=== PATIENT | male | born 1965 | race Caucasian/White ===

== ENCOUNTER 2024-05-16 18:28 | Inpatient (IN) | payer MEDICARE ==
[2024-05-16 19:22] LABS: Basophils % (A) 0 %; Eosinophils # (A) 0.3 k/uL (0-0.7); Eosinophils % (A) 4 %; HGB 13.1 gm/dL (13.0-17.5); Lymphocytes % (A) 26 %; MCH 30.3 pg (25.0-35.0); MCHC 34.5 g/dL (31.0-37.0); Mean Platelet Volume 7.2; Monocytes # (A) 0.4 k/uL (0-1.0); Monocytes % (A) 5 %; Neutrophils % (A) 62 %; Platelet Count 301 k/uL (150-450); RBC 4.32 m/uL (4.30-5.90); RDW 12.9 % (11.5-15.5)
--- NOTE | 2024-05-16 19:32 | CT ---
EXAMINATION TYPE: CT brain wo con DATE OF EXAM: 05/16/2024 7:25 PM COMPARISON: None. CLINICAL INDICATION: Male, 59 years old with history of Altered mental status, AMS. Pt had an abd/pel vis with contrast an hour prior on outpatient side before getting sent to the ER for AMS. Dr. Powers was contacted and said it would be fine to do the Brain w/o. TECHNIQUE: CT of the brain is performed utilizing 3 mm thick sections through the posterior fossa and 3 mm thick sections through the remaining calvarium. Study is performed within 24 hours of arrival to the hospital. Contrast used: mL of , (none if empty). Contrast was given earlier in the day for CT abdomen and pelv is. CT DLP: 1138.8 mGycm, Automated exposure control for dose reduction was used. FINDINGS: No abnormal hyperdensity is present to suggest an acute intracranial hemorrhage. No mass lesion is evident. No acute infarcts are evident. Ventricles and sulci are appropriate for the patient age. Mucosal thickening and air-fluid levels are within the left maxillary sinus. There is mucosal thicken ing within the right maxillary sinus. Mucosal thickening and air-fluid levels are within the left sph enoid sinus. Mucosal thickening in a few ethmoid air cells greater on the right. Some right frontal s inus mucosal thickening is present. Correlate for chronic sinusitis. Consider acute pansinusitis with in the differential. IMPRESSION: 1. No acute intracranial process. Follow up MRI can be performed as clinically indicated. 2. Pansinusitis. [facility], , 05/16/2024 7:29 PM
--- NOTE | 2024-05-16 19:42 | ED ---
General Adult HPI - General Chief complaint: Altered Mental Status Stated complaint: AMS Time Seen by Provider: 05/16/24 18:35 Source: patient, RN notes reviewed, old records reviewed Mode of arrival: ambulatory Limitations: altered mental status - History of Present Illness Initial comments: 59-year-old male who presents from outpatient CT with confusion and altered mental status. Patient is able to answer questions. He was ambulatory at the time of triage with stable vitals. He does occasionally answer questions inappropriately. Uncertain of the onset of his symptoms or his baseline mental status. Patient was apparently receiving CT of the abdomen pelvis on an outpatient basis. He denies pain complaints including no headache. No chest p ain. No fever. - Related Data Allergies Allergy/AdvReac Type Severity Reaction Status Date / Time No Known Allergies Allergy Verified 05/16/24 18:33 Review of Systems ROS Statement: Those systems with pertinent positive or pertinent negative responses have been documented in the HPI. ROS Other: All systems not noted in ROS Statement are negative. Past Medical History Past Medical History: No Reported History History of Any Multi-Drug Resistant Organisms: None Reported Past Surgical History: Cholecystectomy Past Psychological History: No Psychological Hx Reported Smoking Status: Current every day smoker Past Alcohol Use History: None Reported Past Drug Use History: Marijuana General Exam Limitations: no limitations General appearance: alert Head exam: Present: atraumatic, normocephalic Eye exam: Present: normal appearance, PERRL Neck exam: Present: normal inspection. Absent: tenderness, meningismus Respiratory exam: Present: normal lung sounds bilaterally. Absent: respiratory distress, wheezes Cardiovascular Exam: Present: regular rate, normal rhythm GI/Abdominal exam: Present: soft. Absent: distended, tenderness Neurological exam: Present: alert, oriented X3 (Patient is alert and oriented to question however occasionally inappropriately answers), CN II-XII intact. Absent: motor sensory deficit Psychiatric exam: Present: anxious, other (Bizarre behavior) Skin exam: Present: warm, dry, intact Course Vital Signs 05/16/24 05/16/24 18:29 20:30 Temperature 98.2 F Pulse Rate 91 66 Respiratory 16 19 Rate Blood Pressure 137/96 132/84 O2 Sat by Pulse 98 99 Oximetry - Reevaluation(s) Reevaluation #1: 05/16/24 20:34 Patient reevaluated, sleeping. Vital signs are stable, blood sugar is normal. Nurse reports nonsensical speech. Medical Decision Making - Medical Decision Making Was pt. sent in by a medical professional or institution (SHIELA Portillo, ACCESS CONTROL OFFICER, urgent care, hospital, or prison...) When possible be specific @ -No Did you speak to anyone other than the patient for history (EMS, parent, family, police, friend...)? What history was obtained from this source @ -No Did you review nursing and triage notes (agree or disagree)? Why? @ -I reviewed and agree with nursing and triage notes Were old charts reviewed (outside hosp., previous admission, EMS record, old EKG, old radiological studies, urgent care reports/EKG's, prison records)? Report findings @ -No old charts were reviewed Differential Altered Mental Status: Hypoglycemia, DKA, hypercapnia, ETOH, overdose, CO poisoning, trauma, myxedema coma, HTN encephalopathy, infection, encephalitis, psychosis, intercranial hemorrhage, hepatic encephalopathy, meningitis, CVA, this is not meant to be an all-inclusive list EKG interpreted by me (3pts min.). @ -As above X-rays interpreted by me (1pt min.). @ -None done CT interpreted by me (1pt min.). @ -CT brain negative for intracranial hemorrhage or mass effect U/S interpreted by me (1pt. min.). @ -None done What testing was considered but not performed or refused? (CT, X-rays, U/S, labs)? Why? @ -None What meds were considered but not given or refused? Why? @ -None Did you discuss the management of the patient with other professionals (professionals i.e. SHIELA Portillo, ACCESS CONTROL OFFICER, lab, RT, psych nurse, clinical social worker, courier delivery driver, teacher, facility security officer, case managers)? Give summary @Admitted to Dr. Stern Was smoking cessation discussed for >3mins.? @ -No Was critical care preformed (if so, how long)? @ -No Were there social determinants of health that impacted care today? How? (Home lessness, low income, unemployed, alcoholism, drug addiction, transportation, low edu. Level, literacy, decrease access to med. care, retirement, rehab)? @ -No Was there de-escalation of care discussed even if they declined (Discuss DNR or withdrawal of care, Hospice)? DNR status @ -No What co-morbidities impacted this encounter? (DM, HTN, Smoking, COPD, CAD, Cancer, CVA, ARF, Chemo, Hep., AIDS, mental health diagnosis, sleep apnea, morbid obesity)? @ -None Was patient admitted / discharged? Hospital course, mention meds given and route, prescriptions, significant lab abnormalities, going to OR and other pertinent info. @ -[59-year-old male with altered mental status, the timing of this change and baseline mental status is not known. Patient has stable vitals. He is moving all extremities symmetrically. There is no prior medical history available at the time my evaluation. Patient head CT is negative. Normal CBC, CMP shows elevated CO2 and a potassium 3.1 which is replaced. The ammonia is mildly elevated at 37. Urinalysis, urine drug screen and venous blood gas are pending. Undiagnosed new problem with uncertain prognosis? @ -No Drug Therapy requiring intensive monitoring for toxicity (Heparin, Nitro, Insulin, Cardizem)? @ -No Were any procedures done? @ -No Diagnosis/symptom? @ -Altered mental status Acute, or Chronic, or Acute on Chronic? @ -Acute Uncomplicated (without systemic symptoms) or Complicated (systemic symptoms)? @ -Default Side effects of treatment? @ -No Exacerbation, Progression, or Severe Exacerbation? @ -No Poses a threat to life or bodily function? How? (Chest pain, [place], [place], pneumonia, PE, COPD, DKA, ARF, appy, cholecystitis, CVA, Diverticulitis, Homicidal, Suicidal, threat to staff... and all critical care pts) @ -Yes, acute delirium - Lab Data Result diagrams: 05/16/24 19:15 05/16/24 19:15 Lab Results 05/16/24 05/16/24 05/16/24 Range/Units 19:15 19:15 19:15 WBC 8.0 (3.8-10.6) k/uL RBC 4.32 (4.30-5.90) m/uL Hgb 13.1 (13.0-17.5) gm/dL Hct 38.0 L (39.0-53.0) % MCV 88.0 (80.0-100.0) fL MCH 30.3 (25.0-35.0) pg MCHC 34.5 (31.0-37.0) g/dL RDW 12.9 (11.5-15.5) % Plt Count 301 (150-450) k/uL MPV 7.2 Neutrophils % 62 % Lymphocytes % 26 % Monocytes % 5 % Eosinophils % 4 % Basophils % 0 % Neutrophils # 5.0 (1.3-7.7) k/uL Lymphocytes # 2.0 (1.0-4.8) k/uL Monocytes # 0.4 (0-1.0) k/uL Eosinophils # 0.3 (0-0.7) k/uL Basophils # 0.0 (0-0.2) k/uL PT 10.7 (10.0-12.5) sec INR 1.0 (<1.2) APTT 25.1 (22.0-30.0) sec Sodium 136 L (137-145) mmol/L Potassium 3.1 L (3.5-5.1) mmol/L Chloride 95 L (98-107) mmol/L Carbon Dioxide 32 H (22-30) mmol/L Anion Gap 9 mmol/L BUN 16 (9-20) mg/dL Creatinine 0.89 (0.66-1.25) mg/dL Est GFR (CKD-EPI)AfAm >90 (>60 ml/min/1.73 sqM) Est GFR (CKD-EPI)NonAf >90 (>60 ml/min/1.73 sqM) Glucose 102 H (74-99) mg/dL POC Glucose (mg/dL) (70-110) mg/dL POC Glu Mill Work ID Calcium 8.8 (8.4-10.2) mg/dL Total Bilirubin 0.9 (0.2-1.3) mg/dL AST 33 (17-59) U/L ALT 20 (4-49) U/L Alkaline Phosphatase 94 (38-126) U/L Ammonia (<30) umol/L Troponin I (0.000-0.034) ng/mL Total Protein 6.8 (6.3-8.2) g/dL Albumin 3.7 (3.5-5.0) g/dL Serum Alcohol <10 mg/dL 05/16/24 05/16/24 05/16/24 Range/Units 19:15 19:15 20:27 WBC (3.8-10.6) k/uL RBC (4.30-5.90) m/uL Hgb (13.0-17.5) gm/dL Hct (39.0-53.0) % MCV (80.0-100.0) fL MCH (25.0-35.0) pg MCHC (31.0-37.0) g/dL RDW (11.5-15.5) % Plt Count (150-450) k/uL MPV Neutrophils % % Lymphocytes % % Monocytes % % Eosinophils % % Basophils % % Neutrophils # (1.3-7.7) k/uL Lymphocytes # (1.0-4.8) k/uL Monocytes # (0-1.0) k/uL Eosinophils # (0-0.7) k/uL Basophils # (0-0.2) k/uL PT (10.0-12.5) sec INR (<1.2) APTT (22.0-30.0) sec Sodium (137-145) mmol/L Potassium (3.5-5.1) mmol/L Chloride (98-107) mmol/L Carbon Dioxide (22-30) mmol/L Anion Gap mmol/L BUN (9-20) mg/dL Creatinine (0.66-1.25) mg/dL Est GFR (CKD-EPI)AfAm (>60 ml/min/1.73 sqM) Est GFR (CKD-EPI)NonAf (>60 ml/min/1.73 sqM) Glucose (74-99) mg/dL POC Glucose (mg/dL) 119 H (70-110) mg/dL POC Glu Mill Work ID Tyler Diallo Calcium (8.4-10.2) mg/dL Total Bilirubin (0.2-1.3) mg/dL AST (17-59) U/L ALT (4-49) U/L Alkaline Phosphatase (38-126) U/L Ammonia 37 H (<30) umol/L Troponin I <0.012 (0.000-0.034) ng/mL Total Protein (6.3-8.2) g/dL Albumin (3.5-5.0) g/dL Serum Alcohol mg/dL Disposition Clinical Impression: Altered mental status, Acute delirium Disposition: ADMITTED IP TO THIS HOSP Condition: Stable Is patient prescribed a controlled substance at d/c from ED?: No Referrals: Pawan Blackman MD [Primary Care Provider] - 1-2 days Time of Disposition: 20:37
[2024-05-16 19:45] LABS: ALT 20 U/L (4-49); AST 33 U/L (17-59); African American GFR (CKD) >90 (>60 ml/min/1.73 sqM); Albumin 3.7 g/dL (3.5-5.0); Alcohol <10 mg/dL; Alkaline Phosphatase 94 U/L (38-126); Anion Gap 9 mmol/L; Blood Urea Nitrogen 16 mg/dL (9-20); Calcium 8.8 mg/dL (8.4-10.2); Carbon Dioxide 32 mmol/L (22-30); Chloride 95 mmol/L (98-107); Glucose 102 mg/dL (74-99); Non-African American GFR(CKD) >90 (>60 ml/min/1.73 sqM); Potassium 3.1 mmol/L (3.5-5.1); Sodium 136 mmol/L (137-145); Total Bilirubin 0.9 mg/dL (0.2-1.3); Total Protein 6.8 g/dL (6.3-8.2)
[2024-05-16 19:49] LABS: Partial Thromboplastin Time 25.1 sec (22.0-30.0); Prothrombin Time 10.7 sec (10.0-12.5)
[2024-05-16] MEDS ORDERED: NALOXONE 0.4 MG/ML 1 ML VIAL IV PRN (20:32)
[2024-05-16 20:34] LABS: Glucose,Whole Blood 119 mg/dL (70-110)
[2024-05-16 21:12] LABS: VBG PH 7.52 (7.31-7.41)
[2024-05-16] MEDS: SODIUM CHLORIDE 0.9% 500 ML 500 ML IV ONE (21:12)
[2024-05-16] MEDS: SODIUM CHLORIDE 0.9% 1,000 ML IV SCH (21:12)
[2024-05-16] MEDS: LACTULOSE 20 GM/30 ML CUP PO ONE (21:13)
[2024-05-16] MEDS: POTASSIUM CHLORIDE ER 20 MEQ TAB.ER PO STA (21:13)
[2024-05-17] LABS: Appearance,Urine Clear (Clear); Bilirubin,Urine Negative (Negative); Blood,Urine Negative (Negative); Color,Urine Light Yellow; Glucose,Urine (UA) Negative (Negative); Ketones,Urine Negative (Negative); Leukocyte Esterase,Urine Negative (Negative); Nitrite,Urine Negative (Negative); Protein,Urine Negative (Negative); Specific Gravity,Urine 1.043 (1.001-1.035); Urobilinogen,Urine <2.0 mg/dL (<2.0)
[2024-05-17 00:14] LABS: Amphetamine Screen,Urine Not Detected (NotDetected); Barbiturate Screen,Urine Not Detected (NotDetected); Benzodiazepines Screen,Urine Not Detected (NotDetected); Cocaine Screen,Urine Detected (NotDetected); Methadone Screen, Urine Not Detected (NotDetected); Opiate Screen,Urine Not Detected (NotDetected); Oxycodone Screen, Urine Not Detected (NotDetected); Phencyclidine Screen,Urine Not Detected (NotDetected); Tricyclic Antidepressant,Urine Not Detected (NotDetected); Urn Cannabinoid Scrn Detected (NotDetected)
[2024-05-17 00:19] LABS: Acetaminophen <10.0 ug/mL; Salicylate <1.0 mg/dL
[2024-05-17] MEDS ORDERED: OLANZapine 5 MG TAB PO PRN (12:32)
[2024-05-17] MEDS ORDERED: OLANZapine 10 MG VIAL IM PRN (12:32)
--- NOTE | 2024-05-17 12:41 | P.CN ---
Psychiatric Consult - . Consult date: 05/17/24 Consult:: 05/17/24 10:58 IDENTIFYING DATA: This patient is a 59-year-old male, is single has no kids, collect Social Security, currently living alone in a house/farm REASON FOR REFERRAL: Psychiatry was consulted for AMS/acute psychosis HISTORY OF PRESENT ILLNESS: The patient presented to the hospital initially as an outpatient for CT scan/imaging, it was noted at that time to be confused and was brought to the ER on 05/16. Patient apparently was speaking nonsensically, bizarre, clinician was uncertain of patient's baseline. Patient had a CT scan which was done, did not show any acute changes, urine drug screen is positive for cocaine and marijuana, urine analysis was negative. Patient was seen laying in bed agreeable to speak to loan underwriter. He did appear to have disheveled appearance, poor dentition, he was following most directions, did appear to ramble at times, bizarre at times as well. Was able to answer some questions did state his full name, his appropriate age and date of and also today's date. He knew that he was in [facility]. Claims that he came in for imaging however was not able to state why exactly he needed it. When asked further he states that "I do not know my primary care ordered it". He also states that "to check my insides". He appeared to have fairly poor insight into his condition and also treatment. He claims that he moved locally to his friend's farm/house about 2 years ago and [place] Claims that he did have psychiatric services at that time when he was down there and was previously diagnosed with "hypomania". Harris ms that he is not having any paranoia at this time, states that he has been sleeping about 8 hours a night, appetite is fair. Denying any depression or anxiety at this time. Fair attention span, irritability noted at times during interview. At this time patient denies any suicidal or homical ideations, intent or plan. Patient denies any auditory, visual hallucinations and denies any paranoia or delusions. Patients admits to using marijuana regularly, denies any other recreational drug use PAST PSYCHIATRIC HISTORY: Patient has a a history of "hypomania" and claims that he might be diagnosed with bipolar disorder. Claims that he used to be on mood stabilizing medications including "Trileptal" however cannot remember any other ones. Patient denies any previous psychiatric hospitalizations. Claims that he used to follow-up with mental health at "[facility]". However not any local follow-up. Patient denies any history of suicide attempts in the past. Past Medical History: No Reported History History of Any Multi-Drug Resistant Organisms: None Reported Past Surgical History: Cholecystectomy Past Psychological History: No Psychological Hx Reported Smoking Status: Current every day smoker Past Alcohol Use History: None Reported Past Drug Use History: Marijuana ALLERGIES: as per EMR. CHEMICAL DEPENDENCY HISTORY: as per HPI. FAMILY PSYCHIATRIC/SUBSTANCE USE HISTORY: Denies SOCIAL HISTORY: Patient was born and raised in [place]. Claims that he completed his associates degree, he is not working at this time currently lives alone in a farm/house he is single he has no kids he collects Social Security, claims that he did have legal history however was fairly vague about what it is. MENTAL STATUS EXAM: General Appearance: Patient appears to be stated age is alert, attempts to cooperate and follow some commands, irritable at times. Patient appears to have poor hygiene and grooming wearing hospital gown with fair eye contact. Poor dentition Behavior: Patient is calmly lying in bed without any agitated behavior. Irritable at times. Speech: Patient's speech is fluent and nonpressured. Rambling at times. Mood/Affect: Patient reports their mood is "ok", affect is congruent Suicidality/Homicidality: Patient denies having any suicidal or homicidal ideation intent or plan. Perceptions: Patient denies any visual hallucinations and denies any auditory hallucinations Though content/process: There is no evidence of any delusional thought content and thought process is linear and goal-directed. Rambling at times, bizarre statements. Memory and concentration: AOX3, grossly intact for the purposes of this session. Cannot spell "WORLD" backwards Judgment and insight: Poor IMPRESSIONS: Delirium, unknown etiology psychosis NOS, r/o bipolar disorder with psychotic features, schizoaffective disorder, drug-induced psychotic episode Cannabis use disorder PLAN: -At this time patient DOES NOT meet criteria for inpatient psychiatric admission [facility] psychiatry will follow up with patient tomorrow to see if patient is more clear and may be discharged with outpatient follow-up. -Delirium precautions recommended with patient including - avoiding use of narcotics and TECHNICAL PROFESSIONAL sedatives, limit anticholinergic medications when possible, frequent re-orientation, minimize use of restraints, open window shades during the day and close them at night -Would recommend the following medication changes/additions: Risperdal 1 mg now, with 1 mg scheduled nightly for psychosis/mood stabilization, trazodone 50 mg nightly as needed for insomnia, Zyprexa as needed for agitation/aggression. -magazine worker to provide patient with outpatient mental health/psychiatry resources for appropriate follow up upon discharge -Photoengraving Supervisor spoke with patient about substance abuse and the harmful effects on medical and mental health, patient verbally understood and agreed. -magazine worker to provide patient substance use treatment resources including AA/NA meetings in the community. -Communicated plan to patient's nurse -Will continue to follow along -Please contact with any questions. 05/17/24 12:33
[2024-05-17] MEDS: risperiDONE 1 MG TAB PO STA (14:33)
[2024-05-17 14:59] LABS: Basophils # (A) 0.1 k/uL (0-0.2); Basophils % (A) 0 %; Eosinophils # (A) 0.1 k/uL (0-0.7); Eosinophils % (A) 1 %; HCT 39.9 % (39.0-53.0); HGB 13.4 gm/dL (13.0-17.5); Lymphocytes # (A) 1.5 k/uL (1.0-4.8); Lymphocytes % (A) 13 %; MCH 30.1 pg (25.0-35.0); MCHC 33.6 g/dL (31.0-37.0); MCV 89.8 fL (80.0-100.0); Mean Platelet Volume 7.6; Monocytes # (A) 0.6 k/uL (0-1.0); Monocytes % (A) 5 %; Neutrophils # (A) 9.3 k/uL (1.3-7.7); Neutrophils % (A) 80 %; Platelet Count 284 k/uL (150-450); RBC 4.44 m/uL (4.30-5.90); WBC 11.7 k/uL (3.8-10.6)
[2024-05-17 15:15] LABS: African American GFR (CKD) >90 (>60 ml/min/1.73 sqM); Anion Gap 8 mmol/L; Blood Urea Nitrogen 10 mg/dL (9-20); Carbon Dioxide 32 mmol/L (22-30); Chloride 99 mmol/L (98-107); Glucose 123 mg/dL (74-99); Non-African American GFR(CKD) >90 (>60 ml/min/1.73 sqM); Potassium 3.4 mmol/L (3.5-5.1); Sodium 139 mmol/L (137-145)
[2024-05-17] MEDS ORDERED: IOPAMIDOL CONTRAST (ORAL USE) VIAL PO PRN (16:50)
--- NOTE | 2024-05-17 16:53 | P.HPIM ---
History of Present Illness H&P Date: 05/17/24 Chief Complaint: Not making sense 59-year-old patient, follows with Dr. Blackman. Patient had come to the ER when he had presented to the outpatient CT scan for some testing. Was found to be somewhat confused. Ambulatory. Was sent into the ER. He was not making much sense in the ER. Patient apparently was supposed to receive CT scan of the abdomen pelvis he did not have any papers. This morning when I saw the patient is somewhat agitated as several people he says have seen him. He explained to me that in 2019 he had 3 feet of small bowel and duodenum removed [place] [facility]. His bowel pattern is sometimes get several bowel movements. And he is supposed to get a CT scan abdomen and pelvis. He does not remember where his papers were present. He denied using cocaine and marijuana. When I did let him know his results he said yes he is taking the same. A bit agitated during his history taking. Denies any pain. Does cough. No sputum. Review of systems: GEN.: None EYES: None HEENT: None NECK: None RESPIRATORY: Some cough e CARDIOVASCULAR: None GASTROINTESTINAL: Variable bowel pattern e GENITOURINARY: None MUSCULOSKELETAL: None LYMPHATICS: None HEMATOLOGICAL: None PSYCHIATRY: Agitated e NEUROLOGICAL: None Social history: Lives alone. Does smoke. Does do cocaine. Not employed. Physical examination: VITAL SIGNS: 98.9, 84, 18, 139.91, 98% room air GENERAL: BMI 21.5, laying in bed somewhat anxious appearing. EYES: Pupils equal. Conjunctiva kalpana l. HEENT: External appearance of nose and ears normal, oral cavity grossly normal. NECK: JVD not raised; masses not palpable. HEART: First and second heart sounds are normal; no edema. LUNGS: Respiratory rate normal; decreased breath sounds. ABDOMEN: Soft, nontender, liver spleen not palpable, no masses palpable. PSYCH: Sometimes is slightly off with giving answers. A bit agitated. Thank apologizes. l. MUSCULOSKELETAL:No Clubbing/cyanosis;muscles-grossly intact NEUROLOGICAL: Cranial nerves grossly intact; no facial asymmetry, power and sensation grossly intact. LYMPHATICS: No lymph nodes palpable in the axilla and neck INVESTIGATIONS, reviewed in the clinical context: May 17: White count 11.7 hemoglobin 13.4 platelets 24 sodium 139 potassium 3.4 BUN 10 creatinine 0.9 AST 33 ALT 20 Urine drug screen positive for marijuana, cocaine serum alcohol less than 10 EKG tracing personally reviewed by me-normal sinus rhythm CT brain: Unremarkable Assessment plan: -Possible manifestation of cocaine use. Delirium Patient is found to be somewhat confused when he came for his outpatient CT scan. Did not have his papers. Was not making much sense to the ER physician. -Psychosis NOS schizoaffective disorder Being followed by psychiatry. Placed on Risperdal, trazodone, Zyprexa as needed -Chronic nicotine dependence cigarette smoker Nicotine patch -History of irregular bowels from prior surgery 3 feet of small bowel and possible duodenum was removed around 2018 Patient due for outpatient CT scan abdomen pelvis. small bowel removed. Order CT scan abdomen pelvis with and without contrast. Past Medical History Past Medical History: No Reported History Additional Past Medical History / Comment(s): NONE OF ANYONE BUSINESS History of Any Multi-Drug Resistant Organisms: None Reported Past Surgical History: No Surgical Hx Reported, Cholecystectomy Additional Past Surgical History / Comment(s): NO DR'S NO SURGICAL ISSUES Past Psychological History: No Psychological Hx Reported Smoking Status: Current every day smoker Past Alcohol Use History: None Reported Past Drug Use History: Cocaine, Marijuana, Prescription Drug Abuse - Past Family History Mother Family Medical History: Unable to Obtain Medications and Allergies Home Medications Medication Instructions Recorded Confirmed Type Varenicline [Chantix Continuing 1 mg PO DAILY 05/17/24 05/17/24 History Pack] Allergies Allergy/AdvReac Type Severity Reaction Status Date / Time No Known Allergies Allergy Verified 05/17/24 10:56 Physical Exam Vitals: Vital Signs Temp Pulse Pulse Resp BP BP Pulse Ox 05/17/24 08:00 98.9 F 84 18 139/91 98 05/17/24 07:38 68 16 130/68 98 05/17/24 06:00 66 20 145/84 95 05/17/24 05:00 68 15 139/98 05/17/24 04:00 70 19 131/85 05/17/24 03:00 68 19 133/92 05/17/24 02:00 68 19 141/92 05/17/24 01:00 76 13 120/87 96 05/17/24 00:00 76 15 122/84 98 05/16/24 23:00 67 16 136/80 98 05/16/24 22:00 78 14 121/78 99 05/16/24 21:00 70 13 117/90 96 05/16/24 20:30 66 19 132/84 99 05/16/24 18:29 98.2 F 91 16 137/96 98 Intake and Output 05/16/24 05/17/24 05/17/24 22:59 06:59 14:59 Other: Weight 68.039 kg 68.039 kg Results CBC & Chem 7: 05/17/24 14:07 05/17/24 14:07 Labs: Abnormal Lab Results - Last 24 Hours (Table) 05/16/24 05/16/24 05/16/24 Range/Units 19:15 19:15 19:15 Hct 38.0 L (39.0-53.0) % VBG pH (7.31-7.41) VBG HCO3 (24-28) mmol/L Sodium 136 L (137-145) mmol/L Potassium 3.1 L (3.5-5.1) mmol/L Chloride 95 L (98-107) mmol/L Carbon Dioxide 32 H (22-30) mmol/L Glucose 102 H (74-99) mg/dL POC Glucose (mg/dL) (70-110) mg/dL Ammonia 37 H (<30) umol/L Ur Specific [place] (1.001-1.035) Urine Cocaine Screen (NotDetected) U Marijuana (THC) Screen (NotDetected) 05/16/24 05/16/24 05/16/24 Range/Units 20:27 20:48 23:45 Hct (39.0-53.0) % VBG pH 7.52 H (7.31-7.41) VBG HCO3 31 H (24-28) mmol/L Sodium (137-145) mmol/L Potassium (3.5-5.1) mmol/L Chloride (98-107) mmol/L Carbon Dioxide (22-30) mmol/L Glucose (74-99) mg/dL POC Glucose (mg/dL) 119 H (70-110) mg/dL Ammonia (<30) umol/L Ur Specific [place] 1.043 H (1.001-1.035) Urine Cocaine Screen Detected H (NotDetected) U Marijuana (THC) Screen Detected H (NotDetected) Thrombosis Risk Factor Assmnt - Choose All That Apply Each Factor Represents 1 point: Age 41-60 years Thrombosis Risk Factor Assessment Total Risk Factor Score: 1 Thrombosis Risk Factor Assessment Level: Low Risk
[2024-05-17] MEDS: NICOTINE 21MG/24HR PATCH TRANSDERM SCH (18:00)
[2024-05-17] MEDS: risperiDONE 1 MG TAB PO SCH (20:14)
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
[2024-05-18] MEDS: ALBUTEROL HFA INHALER INHALATION SCH (16:38)
[2024-05-18] MEDS: traZODone HCL 50 MG TAB PO PRN (21:38)
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
[2024-05-18] MEDS: HEPARIN SODIUM,PORCINE 5,000 UNIT/ML 1 ML VIAL SQ SCH (23:43)
[2024-05-19 06:04] LABS: African American GFR (CKD) >90 (>60 ml/min/1.73 sqM); Anion Gap 6 mmol/L; Blood Urea Nitrogen 14 mg/dL (9-20); Calcium 8.8 mg/dL (8.4-10.2); Carbon Dioxide 30 mmol/L (22-30); Chloride 103 mmol/L (98-107); Glucose 99 mg/dL (74-99); Non-African American GFR(CKD) 79 (>60 ml/min/1.73 sqM); Potassium 3.9 mmol/L (3.5-5.1); Sodium 139 mmol/L (137-145)
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
--- NOTE | 2024-05-19 16:05 | MR ---
INDICATION: Patient age:Male; 59 years old; Reason for study: AMS; PHH. COMPARISON: CT brain 05/16/2024. TECHNIQUE: Multi planar, multi sequence imaging was performed through the brain without the administr ation intravenous contrast. FINDINGS: The leyva-white junctions, ventricular system, basal cisterns appear unremarkable. Age-appropriate cer ebral parenchymal volume. Diffusion-weighted imaging shows no evidence of restricted diffusion to sug gest acute/subacute infarct. Region of encephalomalacia within the anterior left temporal lobe with f oci of hemosiderin deposition on susceptibility weighted imaging. Additional similar appearance withi n the medial aspect of the bilateral frontal lobes. There is associated gliosis with T2/FLAIR hyperin tensity in these regions. Intracranial arterial flow voids are maintained. Midline structures show no abnormality. The bone marrow signal is within normal limits. The globes are unremarkable. Moderate mucosal thicke carloz of the bilateral maxillary sinuses and left sphenoid sinus. Moderate mucosal thickening of the r ight anterior ethmoid sinus with mild mucosal thickening of the left anterior ethmoid sinus. Mild muc osal thickening of the right frontal sinus. IMPRESSION: 1. No evidence of intracranial mass or acute/subacute infarct. 2. Regions of encephalomalacia within the medial aspects of the bilateral frontal lobes and anterior left temporal lobe from prior injury. [facility], , 05/19/2024 4:02 PM
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
[2024-05-19] MEDS: FOLIC ACID 1 MG TAB PO SCH (18:35)
[2024-05-19] MEDS: CYANOCOBALAMIN 1,000 MCG/ML 1 ML VIAL IM ONE (18:35)
[2024-05-19] MEDS: BENZOCAINE/MENTHOL LOZENG 1 EACH LOZENGE MUCOUS MEM PRN (22:32)
--- NOTE | 2024-05-20 01:41 | EEG ---
ELECTROENCEPHALOGRAM REPORT CLINICAL HISTORY: This is a 59-year-old gentleman with altered mental status. The video EEG is obtained to evaluate for seizure epileptiform activity. RELEVANT MEDICATION: Zyprexa. EEG TYPE: This is a routine 21-channel EEG with video using the 10/20 electrode placement system. DESCRIPTION: Wakefulness is only obtained. During awake state, the posterior-dominant rhythm consists of [id number] voltage of 8.5 to 9.5 hertz activity that is well modulated, and well sustained. There is no physiological stage 2 sleep architecture. There is no focal slowing. Interictal and ictal is none. ACTIVATION PROCEDURE: Photic stimulation did not evoke a posterior driving response. There is no abnormality during the photic stimulation. Hyperventilation is not performed. CLINICAL INTERPRETATION: This is a normal routine EEG during awake state. There is no focal slowing, epileptiform discharge, or seizure on the EEG. A normal routine EEG does not rule out underlying epilepsy. Clinical correlation is recommended. OLU / EMMA: [id number] /
[2024-05-20 08:12] VITALS: TEMP 98.4
[2024-05-20] MEDS: CYANOCOBALAMIN 500 MCG TAB PO SCH (10:48)
[2024-05-20 13:26] VITALS: BP 124/84; PULSE 80; RESP 18
--- NOTE | 2024-05-20 22:10 | P.DS ---
Providers Date of admission: 05/16/24 20:34 Attending physician: Kleber Stern Consults: 05/16/24 20:32 Consult Physician Routine Consulting Provider: Basilio Alexander Consult Reason/Comments: AMS, acute psychosis Do you want consulting provider notified?: Yes Consult Physician Routine Consulting Provider: Dieudonne Forde Consult Reason/Comments: AMS Do you want consulting provider notified?: Yes Primary care physician: Pawan Blackman Hospital Course: Diagnoses: Altered mental status suspected secondary to cocaine use with delirium and toxic encephalopathy Psychosis could be related to schizoaffective disorder evaluated by psychiatrist Nicotine dependence COPD with no acute exacerbation History of irritable bowel syndrome Hospital course: Hospital course: 59-year-old patient, follows with Dr. Blackman. Patient had come to the ER when he had presented to the outpatient CT scan for some testing. Was found to be somewhat confused. Ambulatory. Was sent into the ER. He was not making much sense in the ER. Patient apparently was supposed to receive CT scan of the abdomen pelvis he did not have any papers. On admission patient evaluated by neurology and psychiatry service. He had MRI of the brain which was negative for acute process, EEG showing no epileptiform discharge and neurology signed off the case with no further workup. Neurology service apparently cleared her for discharge from their perspective. Psychiatry adjusted his medication and added Risperdal, trazodone at bedtime as needed. Patient tolerated this well. Patient required the help for hospital coverage especially for Risperdal and I was in contact with the case worker who was helping him regarding this. On the day of discharge patient mentation is back to baseline for more than 48 hours. No headache dizziness. No chest pain dyspnea. No other new symptoms. Patient was eager to go home today. He told the nurse in the morning that if he is not going to be discharged today he is going to leave AMA. However patient is currently stable and can be discharged. Patient was cleared for discharge by neurology and psychiatry service. Problems and management plan were discussed with the patient and he verbalized understanding and acceptance Patient was found stable and can be discharged home in guarded prognosis however he needs follow-up as an outpatient. Patient was instructed to follow up with PCP Dr. Medina within one week and patient agrees Patient was instructed to follow-up with neurologist Dr. Tia matthew in 2 weeks and he agrees. Discussed with case worker to provide him with resources for psychiatric follow-up. Patient agrees with the discharge plan Physical exam Gen: patient is a AAOx3, no distress CVS: S1-S2, RRR, no murmur Lungs: B/L CTA, no wheezing Abdomen: soft, no distention, no tenderness, positive bowel sounds Extremity: no leg edema or induration Time spent more than 35 minutes Patient Condition at Discharge: Stable Plan - Discharge Summary Discharge Rx Participant: No New Discharge Prescriptions: New risperiDONE [RisperDAL] 1 mg PO HS #30 tab traZODone HCL [Desyrel] 50 mg PO HS PRN #30 tab PRN Reason: Insomnia Folic Acid 1 mg PO DAILY #30 tab Nicotine 21Mg/24Hr Patch [Habitrol] 1 patch TRANSDERM DAILY #5 patch Cyanocobalamin [Vitamin B-12] 1,000 mcg PO DAILY #60 tab Continue Varenicline [Chantix Continuing Pack] 1 mg PO DAILY Discharge Medication List Varenicline [Chantix Continuing Pack] 1 mg PO DAILY 05/17/24 [History] Cyanocobalamin [Vitamin B-12] 1,000 mcg PO DAILY #60 tab 05/20/24 [Rx] Folic Acid 1 mg PO DAILY #30 tab 05/20/24 [Rx] Nicotine 21Mg/24Hr Patch [Habitrol] 1 patch TRANSDERM DAILY #5 patch 05/20/24 [Rx] risperiDONE [RisperDAL] 1 mg PO HS #30 tab 05/20/24 [Rx] traZODone HCL [Desyrel] 50 mg PO HS PRN #30 tab 05/20/24 [Rx] Follow up Appointment(s)/Referral(s): Pawan Blackman MD [Primary Care Provider] - 05/22/24 11:00 am (appointment with Debbi STEWART. Please take all discharge paperwork with you to the appointment. ) Octavio Colon MD [Medical Doctor] - 2 Weeks (The office will call to schedule a new patient appointment) Patient Instructions/Handouts: Cocaine Abuse (DC), Altered Mental Status (GEN) Activity/Diet/Wound Care/Special Instructions: heart healthy diet Activity is restricted till you see your doctor Follow-up with psychiatric services and outpatient in 1 to 2 weeks, social services coordinator provided you with resources for this purpose Discharge Disposition: HOME SELF-CARE
== END 2024-05-20 13:28 | disposition home or self-care (01) | DRG 896 ==
LOC: EC 18:28 → 5NMEDONC 20:34
PROVIDERS: ADMIT Hospitalist; ATTEND Hospitalist
DX: F14.121 Cocaine abuse with intoxication with delirium (principal); G92.8 Other toxic encephalopathy; F25.9 Schizoaffective disorder, unspecified; J44.9 Chronic obstructive pulmonary disease, unspecified; F12.10 Cannabis abuse, uncomplicated; G93.89 Other specified disorders of brain; F43.10 Post-traumatic stress disorder, unspecified; T40.5X5A Adverse effect of cocaine, initial encounter; J32.4 Chronic pansinusitis; F15.90 Other stimulant use, unspecified, uncomplicated; F17.210 Nicotine dependence, cigarettes, uncomplicated; Z79.899 Other long term (current) drug therapy; Z87.820 Personal history of traumatic brain injury; Z90.49 Acquired absence of other specified parts of digestive tract
CPT/HCPCS: 36415; 70450; 70551; 80048; 80053; 80143; 80179; 80306; 80320; 81003; 82140; 82607; 82746; 82803; 84443; 84484; 85025; 85610; 85730; 86780; 93005; 94640; 95816; 96360; 96361; 99285

== ENCOUNTER → 2024-05-16 | Outpatient (CLI) | payer MEDICARE ==
--- NOTE | 2024-05-16 19:43 | CT ---
EXAMINATION TYPE: CT abdomen pelvis w con DATE OF EXAM: 05/16/2024 6:39 PM COMPARISON: None. CLINICAL INDICATION: Male, 59 years old with history of Z90.49 HISTORY OF BOWEL RESECTION, Hx of corina l resection. TECHNIQUE: Axial images were obtained from above the diaphragm to the pubic rami in the axial plane a t 5 mm thick sections. Reconstructed images are reviewed on the computer in the coronal plane. CONTRAST: 100 ml mL of Isovue 300. Study performed with Oral Contrast DLP: 1072 mGycm, Automated exposure control for dose reduction was used. FINDINGS: Limited CT sections are obtained the lung bases. The lung bases are clear. CT ABDOMEN: Liver: Normal Spleen: Normal Pancreas: Normal Adrenal glands: The adrenal glands are normal. Gallbladder: Surgically absent Kidneys: No masses are evident. No hydronephrosis is present. No cysts are present. Delayed images were obtained through the kidneys, which remain unremarkable. Aorta: Vascular calcification is within the aorta. Inferior vena cava: Normal. CT PELVIS: Loops of bowel within the abdomen and pelvis are normal. There are loops of bowel which are incom pletely distended or lack oral contrast limiting their evaluation. Appendix: What appears to be the appendix is normal. Urinary bladder: Normal. Genitourinary structures: The prostate is normal. Calcifications within the prostate. Osseous structures: No suspicious lytic or sclerotic lesions. IMPRESSION: 1. No suspicious acute abnormality CT abdomen and pelvis [facility], , 05/16/2024 7:41 PM
== END | disposition home or self-care (01) ==
LOC: RADCTMAIN 16:15
PROVIDERS: ATTEND Family Medicine
DX: K52.9 Noninfective gastroenteritis and colitis, unspecified (principal); R41.3 Other amnesia; Z94.9 Transplanted organ and tissue status, unspecified; Z86.19 Personal history of other infectious and parasitic diseases; Z87.828 Personal history of other (healed) physical injury and trauma
CPT/HCPCS: 74177; Q9967

== ENCOUNTER → 2024-06-17 | Outpatient (CLI) | payer MEDICARE ==
--- NOTE | 2024-06-17 16:31 | CTL ---
Dictation error. Under the nodule section it states posterior left upper lung 3.0 cm pulmonary nodule it should state 3.0 mm pulmonary nodule. The remaining report is correct. [facility], , 06/18/2024 2:17 PM
== END | disposition home or self-care (01) ==
LOC: RADCTMAIN 15:23
PROVIDERS: ATTEND Student in an Organized Health Care Education/Training Program
DX: Z12.2 Encounter for screening for malignant neoplasm of respiratory organs (principal); R91.8 Other nonspecific abnormal finding of lung field; E78.2 Mixed hyperlipidemia; Z82.49 Family history of ischemic heart disease and other diseases of the circulatory system; Z87.891 Personal history of nicotine dependence
CPT/HCPCS: 71271; 94060; 94726; 94729